=== PATIENT | male | born 1965 | race Two or more races ===

== ENCOUNTER 2017-05-28 05:39 | Emergency (ER) | payer MEDICARE, MEDICAID ==
[~2017-05-28] VITALS: Ht 167.6 cm; Wt 69.4 kg
[2017-05-28 06:03] VITALS: BP 148/93
== END 2017-05-28 07:34 | disposition home or self-care (01) ==
LOC: ER 05:40
DX: S66.412A Strain of intrinsic muscle, fascia and tendon of left thumb at wrist and hand level, initial encounter (principal); S60.312A Abrasion of left thumb, initial encounter; R51 Headache; F17.210 Nicotine dependence, cigarettes, uncomplicated; I10 Essential (primary) hypertension; V89.2XXA Person injured in unspecified motor-vehicle accident, traffic, initial encounter; Y93.89 Activity, other specified; Y92.89 Other specified places as the place of occurrence of the external cause; Y99.8 Other external cause status
CPT/HCPCS: 70450; 72125; 73140

== ENCOUNTER 2017-12-13 14:49 | Emergency (ER) | payer MEDICARE, OTHER ==
[~2017-12-13] VITALS: Ht 162.6 cm; Wt 90.7 kg
[2017-12-13] MEDS ORDERED: TRAZ50TA2 (14:58)
[2017-12-13] MEDS ORDERED: RISP2TAB62 (14:58)
[2017-12-13] MEDS ORDERED: BACL10TA (14:58)
[2017-12-13 15:22] VITALS: BP 138/77
== END 2017-12-13 17:02 | disposition home or self-care (01) ==
LOC: ER 14:49 → EDBD 14:49 → EDUNIT# 14:49 → ER 16:55
DX: S80.212A Abrasion, left knee, initial encounter (principal); S80.211A Abrasion, right knee, initial encounter; R51 Headache; Y08.89XA Assault by other specified means, initial encounter; Y93.9 Activity, unspecified; Y92.89 Other specified places as the place of occurrence of the external cause; Y99.8 Other external cause status; Z79.899 Other long term (current) drug therapy; I10 Essential (primary) hypertension; F17.210 Nicotine dependence, cigarettes, uncomplicated
CPT/HCPCS: 36415; 73562

== ENCOUNTER 2019-01-22 11:53 | Emergency (ER) | payer MEDICAID, MEDICARE ==
[~2019-01-22] VITALS: Ht 167.6 cm; Wt 72.6 kg
[~2019-01-22 11:53] MED LIST: BACL10TA; RISP2TAB62; TRAZ50TA2
[2019-01-22 13:30] VITALS: BP 143/93
[2019-01-22] MEDS ORDERED: KETOROLAC TROMETH 60MG/2ML VIAL IM ONE (15:15)
== END 2019-01-22 16:07 | disposition home or self-care (01) ==
LOC: ER 11:57
DX: S05.12XA Contusion of eyeball and orbital tissues, left eye, initial encounter (principal); M25.511 Pain in right shoulder; I10 Essential (primary) hypertension; F17.210 Nicotine dependence, cigarettes, uncomplicated; Z79.899 Other long term (current) drug therapy; Y08.89XA Assault by other specified means, initial encounter; Y93.89 Activity, other specified; Y92.89 Other specified places as the place of occurrence of the external cause; Y99.8 Other external cause status
CPT/HCPCS: 70486; 73030; 96372; 99284; J1885

== ENCOUNTER 2020-03-09 09:01 | Emergency (ER) | payer MEDICARE, MEDICAID ==
[~2020-03-09] VITALS: Ht 167.6 cm; Wt 72.6 kg
[2020-03-09 09:19] VITALS: BP 161/117
[2020-03-09] MEDS ORDERED: cloNIDine HCL 0.1 MG TAB PO ONE (09:45)
[2020-03-09] MEDS ORDERED: ACETAMINOPHEN 500 MG TAB PO ONE (11:00)
== END 2020-03-09 11:16 | disposition home or self-care (01) ==
LOC: EDBD 09:01 → ER 09:01 → EDSEX 09:01 → ER 11:16
DX: S01.01XA Laceration without foreign body of scalp, initial encounter (principal); I10 Essential (primary) hypertension; F17.210 Nicotine dependence, cigarettes, uncomplicated; X58.XXXA Exposure to other specified factors, initial encounter; Y93.89 Activity, other specified; Y92.89 Other specified places as the place of occurrence of the external cause; Y99.8 Other external cause status
CPT/HCPCS: 12001; 70450

== ENCOUNTER 2021-01-01 21:39 | Emergency (ER) | payer MEDICARE, MEDICAID ==
[~2021-01-01] VITALS: Ht 167.6 cm; Wt 74.8 kg
[2021-01-01 21:43] VITALS: BP 149/114
== END 2021-01-02 00:39 | disposition home or self-care (01) ==
LOC: ER 21:51
DX: S09.8XXA Other specified injuries of head, initial encounter (principal); I10 Essential (primary) hypertension; F17.210 Nicotine dependence, cigarettes, uncomplicated; Y04.8XXA Assault by other bodily force, initial encounter; Y93.89 Activity, other specified; Y92.89 Other specified places as the place of occurrence of the external cause; Y99.8 Other external cause status
CPT/HCPCS: 70450

== ENCOUNTER 2021-06-27 17:28 | Emergency (ER) | payer MEDICARE, OTHER ==
[~2021-06-27] VITALS: Ht 167.6 cm; Wt 77.1 kg
[2021-06-27 17:35] VITALS: BP 151/94
== END 2021-06-27 23:34 | disposition left against medical advice (07) ==
LOC: ER 17:28
DX: R05.9 Cough, unspecified (principal); R53.83 Other fatigue; R11.2 Nausea with vomiting, unspecified; M79.10 Myalgia, unspecified site; I10 Essential (primary) hypertension; F17.210 Nicotine dependence, cigarettes, uncomplicated; Z79.899 Other long term (current) drug therapy

== ENCOUNTER 2022-02-24 22:07 | Emergency (ER) | payer MEDICARE, OTHER ==
[~2022-02-24] VITALS: Ht 167.6 cm; Wt 73.0 kg
[2022-02-24 22:07] VITALS: BP 136/88
[2022-02-25 01:26] LABS: Basophils # (auto) 0.1 10 ^3/uL (0-0.2); Basophils % (auto) 0.5 % (0.0-2.0); Eosinophils # (auto) 0.2 10 ^3/uL (0-0.8); Eosinophils % (auto) 1.7 % (0.0-7.0); Hematocrit 39.3 % (41.0-53.0); Hemoglobin 14.2 g/dL (13.5-17.5); Lymphocytes % (auto) 23.6 % (10.0-50.0); Mean Corpuscular Hemoglobin 33.3 pg (28.0-32.0); Mean Corpuscular Hgb Conc. 36.2 g/dL (32.0-36.0); Mean Corpuscular Volume 92.1 fL (80.0-100.0); Monocytes # (auto) 0.9 10 ^3/uL (0-1.3); Monocytes % (auto) 6.7 % (0.0-12.0); Neutrophils # (auto) 8.7 10 ^3/uL (1.6-8.6); Neutrophils % (auto) 67.5 % (37.0-80.0); Red Blood Cells 4.26 10^6/uL (4.5-5.90); Red Cell Distribution Width 12.3 % (11.8-14.3); White Blood Cell 12.9 10^3/uL (4.4-10.8)
[2022-02-25 01:38] LABS: Albumin 3.1 g/dL (3.4-5.0); Potassium 3.2 mmol/L (3.5-5.1)
[2022-02-25 01:40] LABS: Bilirubin, Total 0.5 mg/dL (0.2-1.0); Total Protein 8.1 g/dL (6.4-8.2)
== END 2022-02-25 04:56 | disposition left against medical advice (07) ==
LOC: ER 22:07
DX: R06.02 Shortness of breath (principal); R05.9 Cough, unspecified; R09.81 Nasal congestion; I10 Essential (primary) hypertension; F17.210 Nicotine dependence, cigarettes, uncomplicated; R07.89 Other chest pain
CPT/HCPCS: 36415; 71045; 80053; 83880; 84484; 85025; 85379; 93005